=== PATIENT | female | born 1965 | race Caucasian/White ===

== ENCOUNTER 2020-08-14 15:55 | Observation (INO) ==
[2020-08-14] MEDS ORDERED: ZOFRAN 4 MG/2 ML IVP STA (16:36)
[2020-08-14] MEDS ORDERED: SODIUM CHLORIDE 1,000 ML IV STA (16:36)
[2020-08-14] MEDS ORDERED: PROTONIX IV IVP STA (16:36)
--- NOTE | 2020-08-14 16:51 | ED.PDOC ---
General <YANA CHAN MD - Last Filed: 08/15/20 12:59> ED Provider: Dr. YANA CHAN MD Stated Complaint: recurrent nausea and vomiting x 3 days. no fever or loose stools. Time Seen by Physician: 15:58 Mode of Arrival: Walk-In Information Source: Patient Exam Limitations: No limitations Nursing and Triage Documentation Reviewed and Agree: Yes Does patient meet sepsis criteria?: No System Inflammatory Response Syndrome: Not Applicable Sepsis Protocol: For patient's 13 years and over: Temp is 96.8 and below OR 101 and greater Pulse >90 BPM Resp >20/minute Acutely Altered Mental Status Are patient's symptoms suggestive of a new infection, such as: -Pneumonia -Skin, Soft Tissue -Endocarditis -UTI -Bone, Joint Infection -Implantable Device -Acute Abdominal Infection -Wound Infection -Meningitis -Blood Stream Catheter Infection -Unknown GI Complaint Exam <YANA CHAN MD - Last Filed: 08/15/20 12:59> Vomiting/Diarrhea Complaint/Exam Onset/Duration: 3 days Symptoms Are: Still present Episodes of Vomiting over last 24 Hours: 12 Episodes of Diarrhea Over Last 24 Hours: 0 Initial Severity: Moderate Current Severity: Mild Character of Vomiting: Reports Non-bilious Aggravating: Reports None Alleviating: Reports None Associated Signs and Symptoms: Denies Dizziness, Light-headedness, Melena, Hematemesis, Fever, Abdominal pain and Cramping Last Oral Intake: today Surgical Obstruction Risk Factors: Reports None Related Surgical History: Reports Cholecystectomy Kussmaul Respirations Present: No Differential Diagnoses: Dehydration, Gastritis, Viral Gastroenteritis and Pancreatitis Review of Systems <YANA CHAN MD - Last Filed: 08/15/20 12:59> Review Of Systems Constitutional: Reports No symptoms Eyes: Reports No symptoms Ears, Nose, Mouth, Throat: Reports No symptoms Respiratory: Reports No symptoms Cardiac: Reports No symptoms GI: Reports Nausea and Vomiting : Reports No symptoms Musculoskeletal: Reports No symptoms Skin: Reports No symptoms Neurological: Reports No symptoms Endocrine: Reports No symptoms Hematologic/Lymphatic: Reports No symptoms All Other Systems: Reviewed and Negative PFSH <YANA CHAN MD - Last Filed: 08/15/20 12:59> Medical History (Updated 08/14/20 @ 22:22 by FREDI TUCKER RN) Anxiety Depression Elevated lipids Fatty liver Hypertension Hypothyroid Family History (Updated 08/14/20 @ 22:22 by FREDI TUCKER RN) Mother Cancer of breast Hypothyroid MATERNAL GRANDMOTHER Hypertension SISTER Hypothyroid Social History (Updated 08/14/20 @ 22:22 by FREDI TUCKER RN) Smoking and tobacco status: Current every day smoker Tobacco type: cigarettes Smoking cigarettes per day: 15 Tobacco: How many years used: 40 Surgical History (Updated 08/14/20 @ 22:22 by FREDI TUCKER RN) H/O dilation and curettage History of bilateral carpal tunnel release History of breast augmentation History of Hx of cholecystectomy Female Reproductive History Menstrual Hx Hysterectomy: No Hx Tubal Ligation: No Physical Exam <YANA CHAN MD - Last Filed: 08/15/20 12:59> Physical Exam Appearance: Reports Well-appearing Ill-appearing: None Pain Distress: None Eyes: Reports Conjunctiva inflammed ENT: Reports Ears normal, Nose normal and Oropharynx normal Neck: Supple Respiratory: Reports Airway patent, Breath sounds clear and Breath sounds equal Cardiovascular: Reports RRR, Pulses normal, No rub and No murmur GI/: Reports Soft, Nontender, No masses, Bowel sounds normal and No Organomegaly Musculoskeletal: Reports Normal strength, ROM intact, No edema and No calf tenderness Skin: Reports Warm, Dry and Normal color Neurological: Reports Sensation intact, Motor intact, Reflexes intact, Alert and Oriented Psychiatric: Reports Affect appropriate and Mood appropriate Interpretation <YANA CHAN MD - Last Filed: 08/15/20 12:59> Radiology Interpretation Radiology Interpretation By: Radiologist Exam Interpreted: CT Scan <EDY MULLINS MD - Last Filed: 08/14/20 20:00> Radiology Interpretation Radiology Interpretation By: Radiologist Radiology Results: No acute changes (Impression: see report ) Exam Interpreted: CT Scan Re-Evaluation <YANA CHAN MD - Last Filed: 08/15/20 12:59> Re-Evaluation Time of Re-Evaluation: 16:50 Status: Improved Vital Signs Stable: Yes Pain Level: 0 Appearance: NAD Lungs: Clear Skin: Warm and Dry Neuro: Alert and Oriented X3 CV: RRR <EDY MULLINS MD - Last Filed: 08/14/20 20:00> Critical Care Note Total Critical Care Time (mins): 45 Course <YANA CHAN MD - Last Filed: 08/15/20 12:59> Course Hematology/Chemistry: 08/15/20 05:05 08/15/20 05:05 Orders, Labs, Meds: Lab Review 08/14/20 08/14/20 08/14/20 08:56 16:48 16:48 WBC 16.95 H RBC 6.07 H Hgb 17.0 H Hct 49.0 H MCV 80.7 L MCH 28.0 MCHC 34.7 RDW Coeff of Consuelo 12.6 Plt Count 492 H Immature Gran % (Auto) 0.4 Neut % (Auto) 90.9 H Lymph % (Auto) 5.1 L [place] % (Auto) 3.4 Eos % (Auto) 0.1 Baso % (Auto) 0.1 Neut # (Auto) 15.4 H Lymph # (Auto) 0.9 [place] # (Auto) 0.6 Eos # (Auto) 0.0 Baso # (Auto) 0.0 Immature Gran # (Auto) 0.1 Sodium 131.7 L Potassium 2.02 L* Chloride 86.9 L Carbon Dioxide 16.6 L Anion Gap 30.22 BUN 31.6 H Creatinine 1.82 H Estimated GFR (MDRD) 29.00 BUN/Creatinine Ratio 17.36 Glucose 158.6 H Calcium 9.77 Magnesium Total Bilirubin 0.89 AST 61.2 H ALT 21.4 Alkaline Phosphatase 175.2 H Troponin I Total Protein 8.19 Albumin 4.70 Globulin 3.49 Albumin/Globulin Ratio 1.34 Lipase 920.0 H Serum , Qual Urine Color Yellow Urine Clarity Clear Urine pH 5.5 Ur Specific [place] 1.020 Urine Protein Negative Urine Glucose (UA) Negative Urine Ketones 3+ H Urine Blood Negative Urine Nitrite Negative Urine Bilirubin Negative Urine Urobilinogen 0.2 Ur Leukocyte Esterase Negative 08/14/20 08/14/20 08/14/20 16:49 16:49 16:49 WBC RBC Hgb Hct MCV MCH MCHC RDW Coeff of Consuelo Plt Count Immature Gran % (Auto) Neut % (Auto) Lymph % (Auto) [place] % (Auto) Eos % (Auto) Baso % (Auto) Neut # (Auto) Lymph # (Auto) [place] # (Auto) Eos # (Auto) Baso # (Auto) Immature Gran # (Auto) Sodium Potassium Chloride Carbon Dioxide Anion Gap BUN Creatinine Estimated GFR (MDRD) BUN/Creatinine Ratio Glucose Calcium Magnesium 2.40 H Total Bilirubin AST ALT Alkaline Phosphatase Troponin I 0.032 Total Protein Albumin Globulin Albumin/Globulin Ratio Lipase Serum , Qual Negative Urine Color Urine Clarity Urine pH Ur Specific [place] Urine Protein Urine Glucose (UA) Urine Ketones Urine Blood Urine Nitrite Urine Bilirubin Urine Urobilinogen Ur Leukocyte Esterase Orders Category Date Time Status EKG-(ED ONLY) Stat CARDIO 08/14/20 17:17 Completed ACTIVITY .Up ad Sara CARE 08/14/20 19:50 Active GIVE HS SNACK 2100 CARE 08/14/20 19:51 Active INTAKE & OUTPUT Q8HR CARE 08/14/20 19:50 Active NPO REMINDER: IMAGING ONCE CARE 08/14/20 16:37 Completed VITAL SIGNS Q4HR CARE 08/14/20 19:50 Completed CLEAR LIQUID DIET DIETARY 08/14/20 Breakfast Ordered HS SNACK DIETARY 08/14/20 Dinner Ordered ED IV/MEDIPORT/POWERPORT .ONCE EMERGENCY 08/14/20 16:36 Active BASIC METABOLIC PANEL DAILY@0600 LAB 08/15/20 05:05 Completed BASIC METABOLIC PANEL DAILY@0600 LAB 08/16/20 06:00 Ordered CBC W/ AUTO DIFF DAILY@0600 LAB 08/15/20 05:05 Completed CBC W/ AUTO DIFF DAILY@0600 LAB 08/16/20 06:00 Ordered CBC W/ AUTO DIFF Stat LAB 08/14/20 16:48 Completed COMPREHENSIVE METABOLIC PANEL Stat LAB 08/14/20 16:48 Completed LIPASE Stat LAB 08/14/20 16:48 Completed MAGNESIUM Stat LAB 08/14/20 16:49 Completed SERUM Stat LAB 08/14/20 16:49 Completed TROPONIN I Stat LAB 08/14/20 16:49 Completed URINALYSIS C & S IF INDICATED Stat LAB 08/14/20 08:56 Completed 0.9 % Sodium Chloride [Saline Flush] MEDS 08/14/20 16:36 Active 1 syr IVF PRN PRN Acetaminophen [Tylenol] MEDS 08/14/20 19:50 Active 650 mg PO Q4H PRN Ceftriaxone/D5w 1 gm Premix [Rocephin 1 gm/50 ml D5w] MEDS 08/14/20 18:47 Discontinued 1 gm in 50 ml IV ONCE Enoxaparin Sodium [Lovenox] MEDS 08/15/20 09:00 Active 30 mg SUBCUT DAILY Ondansetron HCl/Pf [Zofran 4 mg/2 ml] MEDS 08/14/20 16:36 Discontinued 4 mg IVP ONCE STA Ondansetron HCl/Pf [Zofran 4 mg/2 ml] MEDS 08/14/20 19:50 Active 4 mg IVP Q6H PRN Pantoprazole Sodium [Protonix IV] MEDS 08/14/20 16:36 Discontinued 40 mg IVP ONCE STA Potassium Chloride [K-Dur] MEDS 08/14/20 17:17 Discontinued 40 meq PO ONCE STA Potassium Chloride [Potassium Chloride 20 Meq/100 ml MEDS 08/14/20 17:17 Discontinued Premix] 20 meq in 100 ml IV ONCE Potassium Chloride in 0.9%NaCl [Sodium Chloride 0.9%- MEDS 08/14/20 20:00 Discontinued KCl 20 Meq] 1,000 ml IV 150 mls/hr Sodium Chloride 0.9% [Sodium Chloride] 1,000 ml MEDS 08/14/20 16:36 Discontinued IV BOLUS RESUSCITATION STATUS Routine OTHERS 08/14/20 19:[address] ABDOMEN/PELVIS WO CONTRAST Stat RADS 08/14/20 16:36 Completed Medications Generic Name Dose Route Start Last Admin Trade Name Freq PRN Reason Stop Dose Admin Acetaminophen 650 mg 08/14/20 19:50 Acetaminophen 325 Mg Tablet PO Q4H PRN fever or mild pain Enoxaparin Sodium 30 mg 08/15/20 09:00 08/15/20 08:51 Enoxaparin Sodium 30 Mg/0.3 Ml Syr SUBCUT 30 mg DAILY NILES Administration Potassium Chloride/Sodium Chloride 1,000 mls @ 150 mls/hr 08/15/20 10:15 0 08/15/20 10:35 Sodium Chloride 0.9%-Kcl 40meq IV 150 mls/hr .Q6H40M NILES Administration Ondansetron HCl 4 mg 08/14/20 19:50 Ondansetron Hcl/Pf 4 Mg/2 Ml Sdv IVP Q6H PRN Nausea or vomiting Potassium Chloride 40 meq 08/15/20 10:30 08/15/20 12:18 Potassium Chloride 20 Meq Tab PO 08/15/20 23:59 40 meq 1200,1730,2100 NILES Administration Sodium Chloride 1 syr 08/14/20 16:36 08/14/20 17:01 0.9% Sodium Chloride 10 Ml Disp.Syrin IVF 1 syr PRN PRN Administration To flush IV Discontinued Medications Generic Name Dose Route Start Last Admin Trade Name Viktoriya PRN Reason Stop Dose Admin Sodium Chloride 1,000 mls @ 1,000 mls/hr 08/14/20 16:36 08/14/20 16:59 Sodium Chloride IV 08/14/20 17:35 1,000 mls/hr BOLUS STA Administration Potassium Chloride 20 meq in 100 mls @ 50 mls/hr 08/14/20 17:17 08/14/20 17:34 Potassium Chloride 20 Meq/100 Ml Premix IV 08/14/20 19:16 50 mls/hr ONCE STA Administration CEFTRIAXONE/D5W 1 GM PREMIX 1 gm in 50 mls @ 75 mls/hr 08/14/20 18:47 08/14/20 19:49 Rocephin 1 Gm/50 Ml D5w IV 08/14/20 19:26 75 mls/hr ONCE STA Administration Potassium Chloride/Sodium Chloride 1,000 mls @ 150 mls/hr 08/14/20 20:00 08/15/20 10:48 Sodium Chloride 0.9%-Kcl 20 Meq IV Not Given .Q6H40M NILES Ondansetron HCl 4 mg 08/14/20 16:36 08/14/20 16:59 Ondansetron Hcl/Pf 4 Mg/2 Ml Sdv IVP 08/14/20 16:37 4 mg ONCE STA Administration Pantoprazole Sodium 40 mg 08/14/20 16:36 08/14/20 17:00 Pantoprazole Sodium 40 Mg Vial IVP 08/14/20 16:37 40 mg ONCE STA Administration Potassium Chloride 40 meq 08/14/20 17:17 08/14/20 17:33 Potassium Chloride 20 Meq Tab PO 08/14/20 17:18 40 meq ONCE STA Administration Potassium Chloride 40 meq 08/15/20 06:14 08/15/20 06:30 Potassium Chloride 20 Meq Tab PO 08/15/20 06:15 40 meq ONCE STA Administration Vital Signs: Temp Pulse Resp BP Pulse Ox 08/14/20 15:56 97.5 F L 103 H 16 107/82 97 <EDY MULLINS MD - Last Filed: 08/14/20 20:00> Course Orders, Labs, Meds: Lab Review 08/14/20 08/14/20 08/14/20 08:56 16:48 16:48 WBC 16.95 H RBC 6.07 H Hgb 17.0 H Hct 49.0 H MCV 80.7 L MCH 28.0 MCHC 34.7 RDW Coeff of Consuelo 12.6 Plt Count 492 H Immature Gran % (Auto) 0.4 Neut % (Auto) 90.9 H Lymph % (Auto) 5.1 L [place] % (Auto) 3.4 Eos % (Auto) 0.1 Baso % (Auto) 0.1 Neut # (Auto) 15.4 H Lymph # (Auto) 0.9 [place] # (Auto) 0.6 Eos # (Auto) 0.0 Baso # (Auto) 0.0 Immature Gran # (Auto) 0.1 Sodium 131.7 L Potassium 2.02 L* Chloride 86.9 L Carbon Dioxide 16.6 L Anion Gap 30.22 BUN 31.6 H Creatinine 1.82 H Estimated GFR (MDRD) 29.00 BUN/Creatinine Ratio 17.36 Glucose 158.6 H Calcium 9.77 Magnesium Total Bilirubin 0.89 AST 61.2 H ALT 21.4 Alkaline Phosphatase 175.2 H Troponin I Total Protein 8.19 Albumin 4.70 Globulin 3.49 Albumin/Globulin Ratio 1.34 Lipase 920.0 H Serum , Qual Urine Color Yellow Urine Clarity Clear Urine pH 5.5 Ur Specific [place] 1.020 Urine Protein Negative Urine Glucose (UA) Negative Urine Ketones 3+ H Urine Blood Negative Urine Nitrite Negative Urine Bilirubin Negative Urine Urobilinogen 0.2 Ur Leukocyte Esterase Negative 08/14/20 08/14/20 08/14/20 16:49 16:49 16:49 WBC RBC Hgb Hct MCV MCH MCHC RDW Coeff of Consuelo Plt Count Immature Gran % (Auto) Neut % (Auto) Lymph % (Auto) [place] % (Auto) Eos % (Auto) Baso % (Auto) Neut # (Auto) Lymph # (Auto) [place] # (Auto) Eos # (Auto) Baso # (Auto) Immature Gran # (Auto) Sodium Potassium Chloride Carbon Dioxide Anion Gap BUN Creatinine Estimated GFR (MDRD) BUN/Creatinine Ratio Glucose Calcium Magnesium 2.40 H Total Bilirubin AST ALT Alkaline Phosphatase Troponin I 0.032 Total Protein Albumin Globulin Albumin/Globulin Ratio Lipase Serum , Qual Negative Urine Color Urine Clarity Urine pH Ur Specific [place] Urine Protein Urine Glucose (UA) Urine Ketones Urine Blood Urine Nitrite Urine Bilirubin Urine Urobilinogen Ur Leukocyte Esterase Orders Category Date Time Status EKG-(ED ONLY) Stat CARDIO 08/14/20 17:17 Completed ACTIVITY .Up ad Sara CARE 08/14/20 19:50 Active GIVE HS SNACK 2100 CARE 08/14/20 19:51 Active INTAKE & OUTPUT Q8HR CARE 08/14/20 19:50 Active NPO REMINDER: IMAGING ONCE CARE 08/14/20 16:37 Completed VITAL SIGNS Q4HR CARE 08/14/20 19:50 Completed CLEAR LIQUID DIET DIETARY 08/14/20 Breakfast Ordered HS SNACK DIETARY 08/14/20 Dinner Ordered ED IV/MEDIPORT/POWERPORT .ONCE EMERGENCY 08/14/20 16:36 Active BASIC METABOLIC PANEL DAILY@0600 LAB 08/15/20 05:05 Completed BASIC METABOLIC PANEL DAILY@0600 LAB 08/16/20 06:00 Ordered CBC W/ AUTO DIFF DAILY@0600 LAB 08/15/20 05:05 Completed CBC W/ AUTO DIFF DAILY@0600 LAB 08/16/20 06:00 Ordered CBC W/ AUTO DIFF Stat LAB 08/14/20 16:48 Completed COMPREHENSIVE METABOLIC PANEL Stat LAB 08/14/20 16:48 Completed LIPASE Stat LAB 08/14/20 16:48 Completed MAGNESIUM Stat LAB 08/14/20 16:49 Completed SERUM Stat LAB 08/14/20 16:49 Completed TROPONIN I Stat LAB 08/14/20 16:49 Completed URINALYSIS C & S IF INDICATED Stat LAB 08/14/20 08:56 Completed 0.9 % Sodium Chloride [Saline Flush] MEDS 08/14/20 16:36 Active 1 syr IVF PRN PRN Acetaminophen [Tylenol] MEDS 08/14/20 19:50 Active 650 mg PO Q4H PRN Ceftriaxone/D5w 1 gm Premix [Rocephin 1 gm/50 ml D5w] MEDS 08/14/20 18:47 Dis continued 1 gm in 50 ml IV ONCE Enoxaparin Sodium [Lovenox] MEDS 08/15/20 09:00 Active 30 mg SUBCUT DAILY Ondansetron HCl/Pf [Zofran 4 mg/2 ml] MEDS 08/14/20 16:36 Discontinued 4 mg IVP ONCE STA Ondansetron HCl/Pf [Zofran 4 mg/2 ml] MEDS 08/14/20 19:50 Active 4 mg IVP Q6H PRN Pantoprazole Sodium [Protonix IV] MEDS 08/14/20 16:36 Discontinued 40 mg IVP ONCE STA Potassium Chloride [K-Dur] MEDS 08/14/20 17:17 Discontinued 40 meq PO ONCE STA Potassium Chloride [Potassium Chloride 20 Meq/100 ml MEDS 08/14/20 17:17 Discontinued Premix] 20 meq in 100 ml IV ONCE Potassium Chloride in 0.9%NaCl [Sodium Chloride 0.9%- MEDS 08/14/20 20:00 Discontinued KCl 20 Meq] 1,000 ml IV 150 mls/hr Sodium Chloride 0.9% [Sodium Chloride] 1,000 ml MEDS 08/14/20 16:36 Discontinued IV BOLUS RESUSCITATION STATUS Routine OTHERS 08/14/20 19:[address] ABDOMEN/PELVIS WO CONTRAST Stat RADS 08/14/20 16:36 Completed Medications Generic Name Dose Route Start Last Admin Trade Name Freq PRN Reason Stop Dose Admin Acetaminophen 650 mg 08/14/20 19:50 Acetaminophen 325 Mg Tablet PO Q4H PRN fever or mild pain Enoxaparin Sodium 30 mg 08/15/20 09:00 08/15/20 08:51 Enoxaparin Sodium 30 Mg/0.3 Ml Syr SUBCUT 30 mg DAILY NILES Administration Potassium Chloride/Sodium Chloride 1,000 mls @ 150 mls/hr 08/15/20 10:15 08/15/20 10:35 Sodium Chloride 0.9%-Kcl 40meq IV 150 mls/hr .Q6H40M NILES Administration Ondansetron HCl 4 mg 08/14/20 19:50 Ondansetron Hcl/Pf 4 Mg/2 Ml Sdv IVP Q6H PRN Nausea or vomiting Potassium Chloride 40 meq 08/15/20 10:30 08/15/20 12:18 Potassium Chloride 20 Meq Tab PO 08/15/20 23:59 40 meq 1200,1730,2100 NILES Administration Sodium Chloride 1 syr 08/14/20 16:36 08/14/20 17:01 0.9% Sodium Chloride 10 Ml Disp.Syrin IVF 1 syr PRN PRN Administration To flush IV Discontinued Medications Generic Name Dose Route Start Last Admin Trade Name Freq PRN Reason Stop Dose Admin Sodium Chloride 1,000 mls @ 1,000 mls/hr 08/14/20 16:36 08/14/20 16:59 Sodium Chloride IV 08/14/20 17:35 1,000 mls/hr BOLUS STA Administration Potassium Chloride 20 meq in 100 mls @ 50 mls/hr 08/14/20 17:17 08/14/20 17:34 Potassium Chloride 20 Meq/100 Ml Premix IV 08/14/20 19:16 50 mls/hr ONCE STA Administration CEFTRIAXONE/D5W 1 GM PREMIX 1 gm in 50 mls @ 75 mls/hr 08/14/20 18:47 08/14/20 19:49 Rocephin 1 Gm/50 Ml D5w IV 08/14/20 19:26 75 mls/hr ONCE STA Administration Potassium Chloride/Sodium Chloride 1,000 mls @ 150 mls/hr 08/14/20 20:00 08/15/20 10:48 Sodium Chloride 0.9%-Kcl 20 Meq IV Not Given .Q6H40M NILES Ondansetron HCl 4 mg 08/14/20 16:36 08/14/20 16:59 Ondansetron Hcl/Pf 4 Mg/2 Ml Sdv IVP 08/14/20 16:37 4 mg ONCE STA Administration Pantoprazole Sodium 40 mg 08/14/20 16:36 08/14/20 17:00 Pantoprazole Sodium 40 Mg Vial IVP 08/14/20 16:37 40 mg ONCE STA Administration Potassium Chloride 40 meq 08/14/20 17:17 08/14/20 17:33 Potassium Chloride 20 Meq Tab PO 08/14/20 17:18 40 meq ONCE STA Administration Potassium Chloride 40 meq 08/15/20 06:14 08/15/20 06:30 Potassium Chloride 20 Meq Tab PO 08/15/20 06:15 40 meq ONCE STA Administration Vital Signs: Temp Pulse Resp BP Pulse Ox 08/14/20 15:56 97.5 F L 103 H 16 107/82 97 Discharge Plan Discharge Patient Disposition: PLACED OBSERVATION Discharge Problem: Acute hypokalemia, Hypovolemia dehydration Acute renal failure (ARF) Qualifiers: Acute renal failure type: unspecified Qualified Code(s): N17.9 - Acute kidney failure, unspecified Acute pancreatitis Qualifiers: Pancreatitis type: idiopathic Acute pancreatitis complication: unspecified Qualified Code(s): K85.00 - Idiopathic acute pancreatitis without necrosis or infection ED Provider: YANA CHAN Condition: Fair <YANA CHAN MD - Last Filed: 08/15/20 12:59> Physician Progress Note: []Pt was endorsed to Dr Mullins. Please see his medical record notes and admission orders.
[2020-08-14 16:55] LABS: BASOPHILS % (AUTO) 0.1 % (0.0-3.0); EOSINOPHILS % (AUTO) 0.1 % (0.0-7.0); IMMATURE GRANULOCYTE # (AUTO) 0.1 (0.0-1.0); IMMATURE GRANULOCYTE % (AUTO) 0.4 % (0.0-5.0); LYMPHOCYTES # (AUTO) 0.9 K/uL (0.60-3.4); LYMPHOCYTES % (AUTO) 5.1 (10.0-50.0); MEAN CORPUSCULAR HGB CONC 34.7 (31.8-35.4); MEAN CORPUSCULAR VOLUME 80.7 fl (81.0-99.0); MONOCYTES # (AUTO) 0.6 K/uL (0.4-2.0); MONOCYTES % (AUTO) 3.4 (0-10); NEUTROPHILS # (AUTO) 15.4 K/ul (2.0-6.9); NEUTROPHILS % (AUTO) 90.9 % (42.2-75.2); PLATELET COUNT 492 10^3/uL (140-440); RDW COEFFICIENT OF VARIATION 12.6 % (11.6-14.8); RED BLOOD COUNT 6.07 10^6/ul (4.20-5.40); WHITE BLOOD COUNT 16.95 K/ul (4.6-10.2)
[2020-08-14 17:05] LABS: ALANINE AMINOTRANSFERASE 21.4 U/L (0-35); ALBUMIN 4.7 g/dL (3.5-5.0); ALKALINE PHOSPHATASE 175.2 U/L (38-126); ASPARTATE AMINO TRANSFERASE 61.2 U/L (14-36); BILIRUBIN,TOTAL 0.89 mg/dL (0.2-1.3); BLOOD UREA NITROGEN 31.6 mg/dL (7-17); CALCIUM 9.77 mg/dL (8.4-10.2); CARBON DIOXIDE 16.6 mmol/L (22-30.0); CHLORIDE 86.9 mmol/L (98-107); CREATININE 1.82 mg/dL (0.60-1.30); GLUCOSE 158.6 mg/dL (74-106); SODIUM 131.7 mmol/L (134.5-145); TOTAL PROTEIN 8.19 g/dL (6.3-8.2)
[2020-08-14 17:08] LABS: POTASSIUM 2.02 mmol/L (3.5-5.1)
[2020-08-14] MEDS ORDERED: K-DUR PO STA (17:17)
[2020-08-14] MEDS ORDERED: POTASSIUM CHLORIDE 20 MEQ/100 ML PREMIX 20 MEQ/100 ML BAG IV STA (17:17)
[2020-08-14 18:10] LABS: SERUM PREGNANCY NEGATIVE (NEGATIVE)
[2020-08-14] MEDS ORDERED: ROCEPHIN 1 GM/50 ML D5W 1 GM/50 ML BAG IV STA (18:47)
--- NOTE | 2020-08-14 19:21 | CT ---
EXAM: CT of the abdomen pelvis without contrast History: Nausea and vomiting. Technique: Multiplanar CT images through the abdomen pelvis without the administration of IV contras t Findings: Bilateral breast implants. Chronic right basilar atelectasis or scarring. No acute osseo us abnormalities. Hardware is seen within the right hip. Mild wall thickening of the distal esophagus. No alexa peripancreatic inflammation. Adrenal glands are unremarkable. Punctate 1 mm nonobstructing bilateral renal calculi. Calcified granulomas within the spleen. No liver lesions. Atherosclerotic vascular calcifications. No bladder wall thickening . Uterus is atrophic. No perirectal inflammation. Moderate stool within the rectum. No free air a nd no ascites. The appendix is normal. No bowel obstruction. No pathologically enlarged lymph node s. Impression: 1. No acute intra-abdominal or pelvic process. 2. Mild wall thickening of the distal esophagus. 3. Punctate nonobstructing bilateral nephrolithiasis. 4. Moderate stool within the rectum. 5. Atherosclerotic vascular disease. 6. Right basilar lung atelectasis or scarring All CT scans are performed using dose optimization techniques as appropriate to the performed exam an d include at least one of the following: Automated exposure control, adjustment of the mA and/or kV according t o size, and the use of iterative reconstruction technique.
[2020-08-14] MEDS ORDERED: ZOFRAN 4 MG/2 ML IVP PRN (19:50)
[2020-08-14] MEDS ORDERED: TYLENOL PO PRN (19:50)
[2020-08-14] MEDS: SODIUM CHLORIDE 0.9%-KCL 20 MEQ 1,000 ML IV SCH (21:53)
[2020-08-14 22:12] VITALS: BMI 14.7
[2020-08-15] MEDS: SODIUM CHLORIDE 0.9%-KCL 20 MEQ 1,000 ML IV SCH ×2 (04:06→10:48)
[2020-08-15 05:30] LABS: BASOPHILS # (AUTO) 0.1 K/uL (0-0.2); BASOPHILS % (AUTO) 0.5 % (0.0-3.0); EOSINOPHILS % (AUTO) 0.3 % (0.0-7.0); HEMATOCRIT 35.5 % (37.0-47.0); HEMOGLOBIN 12.5 g/dl (12.0-16.0); IMMATURE GRANULOCYTE # (AUTO) 0.1 (0.0-1.0); IMMATURE GRANULOCYTE % (AUTO) 0.5 % (0.0-5.0); LYMPHOCYTES # (AUTO) 2.1 K/uL (0.60-3.4); LYMPHOCYTES % (AUTO) 17.7 (10.0-50.0); MEAN CORPUSCULAR HEMOGLOBIN 28.5 pg (27.0-31.0); MEAN CORPUSCULAR HGB CONC 35.2 (31.8-35.4); MEAN CORPUSCULAR VOLUME 81.1 fl (81.0-99.0); MONOCYTES # (AUTO) 1.3 K/uL (0.4-2.0); MONOCYTES % (AUTO) 11.5 (0-10); NEUTROPHILS # (AUTO) 8.1 K/ul (2.0-6.9); NEUTROPHILS % (AUTO) 69.5 % (42.2-75.2); PLATELET COUNT 341 10^3/uL (140-440); RDW COEFFICIENT OF VARIATION 12.5 % (11.6-14.8); RED BLOOD COUNT 4.38 10^6/ul (4.20-5.40); WHITE BLOOD COUNT 11.61 K/ul (4.6-10.2)
[2020-08-15 05:44] LABS: BLOOD UREA NITROGEN 21.6 mg/dL (7-17); CALCIUM 8.35 mg/dL (8.4-10.2); CARBON DIOXIDE 19.7 mmol/L (22-30.0); CHLORIDE 103.7 mmol/L (98-107); CREATININE 0.83 mg/dL (0.60-1.30); SODIUM 133.1 mmol/L (134.5-145)
[2020-08-15 05:48] LABS: POTASSIUM 2.15 mmol/L (3.5-5.1)
[2020-08-15] MEDS ORDERED: K-DUR PO STA (06:14)
[2020-08-15] MEDS: LOVENOX SUBCUT SCH (08:51)
[2020-08-15 09:12] LABS: BILIRUBIN,URINE Negative (NEGATIVE); CLARITY,URINE Clear (CLEAR); COLOR,URINE Yellow (YELLOW); GLUCOSE, URINE (UA) Negative (NEGATIVE); KETONES,URINE 3+ (NEGATIVE); LEUKOCYTE ESTERASE ,URINE Negative (NEGATIVE); NITRITE,URINE Negative (NEGATIVE); PH,URINE 5.5 (5-9); PROTEIN,URINE Negative (NEGATIVE); URINE, BLOOD Negative (NEGATIVE); UROBILINOGEN,URINE 0.2 (0.2)
[2020-08-15] MEDS ORDERED: POTASSIUM CHLORIDE 20 MEQ/100 ML PREMIX 20 MEQ/100 ML BAG IV STA (09:51)
[2020-08-15] MEDS: SODIUM CHLORIDE 0.9%-KCL 40MEQ 1,000 ML IV SCH ×2 (10:35→17:26)
[2020-08-15] MEDS: K-DUR PO SCH ×4 (10:35→20:35)
[2020-08-15] MEDS ORDERED: SODIUM CHLORIDE 500 ML IV STA (19:24)
[2020-08-15] MEDS ORDERED: SODIUM CHLORIDE 1,000 ML IV SCH (19:30)
--- NOTE | 2020-08-15 19:37 | PCM.PROG ---
Date Seen by Provider: 08/15/20 Time Seen by Provider: 19:05 Subjective: I feel much better. pt was lying comfortably in bed. Objective: Vitals: T=97.6 F, P=95, R=18, BP=82/59, SPO2=96 HEENT: []wnl. mild left conjunctivitis. Neck: []supple. Lungs: [] chest was clear CVS: []RRR Abdomen: []benign Extremities: []no acute edema Neurological: []non-focal Skin: []no acut abnormality. Lab/Tests/Diagnostic Imaging: [] Plan: 1. Increase IV fluids to maintain BP > 90/60. 2. Potassium repletion continuing. 3. Ensure left eye Rx continuation.
[2020-08-16] MEDS: SODIUM CHLORIDE 0.9%-KCL 40MEQ 1,000 ML IV SCH (00:06)
[2020-08-16 05:32] LABS: BASOPHILS # (AUTO) 0.1 K/uL (0-0.2); BASOPHILS % (AUTO) 0.5 % (0.0-3.0); EOSINOPHILS # (AUTO) 0.3 K/ul (0.0-0.7); EOSINOPHILS % (AUTO) 2.6 % (0.0-7.0); IMMATURE GRANULOCYTE % (AUTO) 0.3 % (0.0-5.0); LYMPHOCYTES # (AUTO) 1.4 K/uL (0.60-3.4); LYMPHOCYTES % (AUTO) 14.1 (10.0-50.0); MEAN CORPUSCULAR HEMOGLOBIN 28.9 pg (27.0-31.0); MEAN CORPUSCULAR HGB CONC 35.3 (31.8-35.4); MEAN CORPUSCULAR VOLUME 81.9 fl (81.0-99.0); MONOCYTES # (AUTO) 0.7 K/uL (0.4-2.0); MONOCYTES % (AUTO) 7.1 (0-10); NEUTROPHILS # (AUTO) 7.6 K/ul (2.0-6.9); NEUTROPHILS % (AUTO) 75.4 % (42.2-75.2); PLATELET COUNT 299 10^3/uL (140-440); RED BLOOD COUNT 4.15 10^6/ul (4.20-5.40); WHITE BLOOD COUNT 10.04 K/ul (4.6-10.2)
[2020-08-16 05:44] LABS: CALCIUM 8.94 mg/dL (8.4-10.2); CARBON DIOXIDE 16.2 mmol/L (22-30.0); CHLORIDE 118.6 mmol/L (98-107); CREATININE 0.39 mg/dL (0.60-1.30); GLUCOSE 93.2 mg/dL (74-106); LIPASE 974.3 U/L (23-300); POTASSIUM 5.36 mmol/L (3.5-5.1); SODIUM 136.7 mmol/L (134.5-145)
[2020-08-16] MEDS ORDERED: SODIUM CHLORIDE 1,000 ML IV SCH (07:35)
[2020-08-16] MEDS: LOVENOX SUBCUT SCH (08:17)
[2020-08-16 10:37] VITALS: BP 99/70; TEMP 98
--- NOTE | 2020-08-16 10:58 | PCM.PROG ---
Date Seen by Provider: 08/16/20 Time Seen by Provider: 09:51 Subjective: Pt had no acute complaints. Objective: Vitals: T=98 F, P=63, R=20, BP=99/70, SPO2=96 HEENT: []left eye mild conjunctivitis. Neck: []supple Lungs: []chest was clear. CVS: []RRR Abdomen: []benign Extremities: []no acute abnormality Neurological: []non-focal. Skin: []wnl Lab/Tests/Diagnostic Imaging: []K 5.3 Plan: 1. Patient for home. Diagnoses: Hypokalemia, Dehydration, elevated lipase, resolved acute renal failure. 2. Rx K-dur 3. PMD in 1-2 days. .Continue home meds. Tx left conjunctivitis. 4. f/u elevated lipase`````````````````````````````````````````````````````````````````````````` ```````````````````````````````````````````````````````````````````````````````` ``````````````````` ................................................................................ ................................................................................ .................................. .....................................................................
--- NOTE | 2020-08-16 14:02 | PCM.DC ---
Final Diagnosis: Hypokalemia Dehydration Resolved acute kidney disease. Hospital course: Pt was admitted from the ED on 08/14/2020 and discharged on 08/16/2020. Pt was rehydrated via IV normal saline cautiously and her potassium was repleted carefully. Her vital signs remained stable and she was seen sitting comfortably on the side of the bed, having ambulated to the rest room. Pt wanted to go home and was discharged. Medications at Discharge: Ambulatory Orders Medication Instructions Recorded alendronate 10 mg PO DAILY 06/29/20 citalopram 20 mg PO DAILY 06/29/20 fenofibrate 154 mg PO DAILY 06/29/20 hydrochlorothiazide 12.5 mg PO DAILY 06/29/20 methimazole 10 mg PO DAILY 06/29/20 potassium chloride 20 meq PO DAILY 10 Days #10 tab 08/16/20
== END 2020-08-16 12:15 | disposition home or self-care (01) ==
LOC: MEDSURG A 15:55 → ED 15:55 → MEDSURG A 21:45
PROVIDERS: ADMIT Internal Medicine Geriatric Medicine; ATTEND Emergency Medicine
DX: K85.00 Idiopathic acute pancreatitis without necrosis or infection; N17.9 Acute kidney failure, unspecified; R11.2 Nausea with vomiting, unspecified; E86.0 Dehydration; E87.6 Hypokalemia